=== PATIENT | male | born 1995 | race Hispanic/Latino ===

== ENCOUNTER 2017-03-21 20:04 | Emergency (ER) | payer BC ==
[2017-03-21] MEDS ORDERED: Lidocaine 1% (PF) 30 ML VIAL ONE (20:51)
[2017-03-21] MEDS ORDERED: Adacel (T-DAP) 0.5 ML VIAL ONE (20:56)
--- NOTE | 2017-03-21 21:12 | RAD ---
RIGHT FOREARM TWO VIEWS: 03/21/80 HISTORY: Laceration to inner forearm. Soft tissue laceration and air within the soft tissues is noted I do not appreciate a definite radiop aque foreign body and there is no underlying fracture. IMPRESSION: Soft tissue laceration. POS: [facility]
[2017-03-21] MEDS ORDERED: Bacitracin Zinc 1 Packet ONE (22:55)
== END 2017-03-21 23:10 | disposition home or self-care (01) ==
LOC: ERS 20:04
DX: S51.811A Laceration without foreign body of right forearm, initial encounter (principal); Z87.891 Personal history of nicotine dependence; W25.XXXA Contact with sharp glass, initial encounter
CPT/HCPCS: 12034; 90471; 90715; J2001

== ENCOUNTER 2017-05-22 19:55 | Emergency (ER) | payer BC | END 2017-05-22 22:35 | disposition home or self-care (01) | LOC: ERS 19:55 | DX: K64.4 Residual hemorrhoidal skin tags (principal); F17.210 Nicotine dependence, cigarettes, uncomplicated | CPT/HCPCS: 99283 ==

== ENCOUNTER 2020-11-24 14:31 | Emergency (ER) | payer SELFPAY ==
[2020-11-24] MEDS ORDERED: Bupivacaine 0.5% 10 ML VIAL ONE (16:42)
[2020-11-24] MEDS ORDERED: Fluorescein Opthalmic Strip ONE (16:44)
[2020-11-24] MEDS ORDERED: Proparacaine 0.5% Opth 15 ML BOT ONE (16:44)
== END 2020-11-24 18:51 | disposition home or self-care (01) ==
LOC: ERS 14:31
DX: S05.01XA Injury of conjunctiva and corneal abrasion without foreign body, right eye, initial encounter (principal); F17.210 Nicotine dependence, cigarettes, uncomplicated; X58.XXXA Exposure to other specified factors, initial encounter; Y92.89 Other specified places as the place of occurrence of the external cause; Y99.0 Civilian activity done for income or pay
CPT/HCPCS: 99283; J3490

== ENCOUNTER 2021-01-18 08:21 | Emergency (ER) | payer SELFPAY ==
[2021-01-18] MEDS ORDERED: Bicillin LA 1.2 MILLION UNITS/2 ML SYRINGE ONE ×2 (09:33→09:46)
== END 2021-01-18 09:58 | disposition home or self-care (01) ==
LOC: ERS 08:21
DX: J02.0 Streptococcal pharyngitis (principal); F17.210 Nicotine dependence, cigarettes, uncomplicated
CPT/HCPCS: 71045; 87430; 96372; J0561

== ENCOUNTER 2021-08-14 22:44 | Emergency (ER) | payer SELFPAY | END 2021-08-14 23:57 | disposition home or self-care (01) | LOC: ERS 22:44 | DX: I83.891 Varicose veins of right lower extremity with other complications (principal); F17.210 Nicotine dependence, cigarettes, uncomplicated | CPT/HCPCS: 99283 ==

== ENCOUNTER 2021-09-07 08:28 | Emergency (ER) | payer SELFPAY | END 2021-09-07 08:47 | disposition home or self-care (01) | LOC: ERS 08:28 | DX: R05.9 Cough, unspecified (principal); F17.210 Nicotine dependence, cigarettes, uncomplicated ==

== ENCOUNTER 2022-01-11 23:54 | Emergency (ER) | payer SELFPAY | END 2022-01-12 00:31 | disposition home or self-care (01) | LOC: ERS 23:54 | DX: H66.93 Otitis media, unspecified, bilateral (principal) | CPT/HCPCS: 99282 ==

== ENCOUNTER 2022-05-28 17:25 | Emergency (ER) | payer SELFPAY ==
[2022-05-28 18:53] LABS: Bilirubin Negative (Negative); Blood, Urine Negative (Negative); Clarity Turbid (Clear); Glucose, Urine (Dipstick) >=1000 mg/dL (Negative); Ketone, Urine Negative (Negative); Leukocyte Negative Leu/uL (Negative); Nitrite Negative (Negative); Protein, Urine (Dipstick) 20 mg/dL (Neg-Trace); Specific Gravity, Urine 1.024 (1.002-1.036); Urobilinogen 3 mg/dL (Less than 2); pH, Urine 7.5 (5.0-9.0)
[2022-05-28] MEDS ORDERED: Ketorolac Tromethamine 30 MG/ML VIAL ONE (19:51)
[2022-05-28] MEDS ORDERED: cefTRIAXone (ROCEPHIN) 250 MG VIAL ONE (19:51)
[2022-05-28] MEDS ORDERED: Azithromycin 250 MG TAB ONE (19:51)
[2022-05-28] MEDS ORDERED: Lidocaine 1% PF 5 ML VIAL ONE (19:51)
== END 2022-05-28 20:20 | disposition home or self-care (01) ==
LOC: ERS 17:25
DX: N45.1 Epididymitis (principal); N43.3 Hydrocele, unspecified; I83.92 Asymptomatic varicose veins of left lower extremity; F17.210 Nicotine dependence, cigarettes, uncomplicated
CPT/HCPCS: 76870; 81003; 93976; 96372; J0696; J1885

== ENCOUNTER 2022-12-30 11:03 | Emergency (ER) | payer BC, SELFPAY ==
[2022-12-30] MEDS ORDERED: Acetaminophen 500 MG TAB ONE (11:47)
[2022-12-30 12:13] LABS: SARS-CoV-2 NAA Rapid Test Not Detected (NotDetected)
[2022-12-30] MEDS ORDERED: Ketorolac Tromethamine 30 MG/ML VIAL ONE (13:17)
== END 2022-12-30 13:26 | disposition home or self-care (01) ==
LOC: ERS 11:03
DX: J10.1 Influenza due to other identified influenza virus with other respiratory manifestations (principal); F17.210 Nicotine dependence, cigarettes, uncomplicated; Z20.822 Contact with and (suspected) exposure to COVID-19
CPT/HCPCS: 99283; J1885

== ENCOUNTER 2023-11-12 21:57 | Emergency (ER) | payer SELFPAY | END 2023-11-12 23:25 | disposition home or self-care (01) | LOC: ERS 21:57 | DX: K64.9 Unspecified hemorrhoids (principal); F17.210 Nicotine dependence, cigarettes, uncomplicated; X50.0XXA Overexertion from strenuous movement or load, initial encounter; Y93.F2 Activity, caregiving, lifting; Y92.69 Other specified industrial and construction area as the place of occurrence of the external cause | CPT/HCPCS: 99282 ==

== ENCOUNTER 2024-03-05 17:36 | Emergency (ER) | payer SELFPAY ==
[2024-03-05] MEDS ORDERED: Ibuprofen 800 MG TAB ONE (18:40)
== END 2024-03-05 18:54 | disposition home or self-care (01) ==
LOC: ERS 17:36
DX: S16.1XXA Strain of muscle, fascia and tendon at neck level, initial encounter (principal); Z87.891 Personal history of nicotine dependence; X58.XXXA Exposure to other specified factors, initial encounter
CPT/HCPCS: 99282